=== PATIENT | male | born 1995 | race Caucasian/White ===

== ENCOUNTER 2024-05-22 16:17 | Emergency (ER) | payer OTHER ==
[~2024-05-22] VITALS: Ht 182.9 cm; Wt 98.4 kg
[2024-05-22 16:54] VITALS: BP 131/87; TEMP 98
[2024-05-22 18:31] VITALS: O2SAT 99
== END 2024-05-22 18:31 ==
LOC: ER 17:26
DX: Z02.89 Encounter for other administrative examinations (principal); F17.200 Nicotine dependence, unspecified, uncomplicated